=== PATIENT | female | born 2000 | race Caucasian/White ===

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

== ENCOUNTER → 2022-12-07 | Outpatient (CLI) | payer SELFPAY ==
[2022-12-07 16:56] LABS: CLUE CELLS OBSERVED (Not Observd)
== END ==
LOC: LAB 15:42
PROVIDERS: Nurse Practitioner Family
DX: Z20.2 Contact with and (suspected) exposure to infections with a predominantly sexual mode of transmission (principal); N39.0 Urinary tract infection, site not specified; R30.0 Dysuria; R82.998 Other abnormal findings in urine
CPT/HCPCS: Q0111